=== PATIENT | male | born 1965 | race Caucasian/White ===

== ENCOUNTER → 2024-01-04 10:02 | Outpatient (CLI) | payer OTHER, SELFPAY ==
[2024-01-04 21:13] LABS: Blood Urea Nitrogen 11 mg/dL (9-20); Calcium 9.4 mg/dL (8.4-10.2); Carbon Dioxide 24 mmol/L (22-32); Chloride 104 mmol/L (98-107); Cholesterol 271 mg/dL (140-199); Estimated Glomerular Filt Rate > 60 mL/min (>60); Glucose 94 mg/dL (70-100); HDL Cholesterol 35 mg/dL (40-60); HEMOLYSIS 16 (0-50); LDL Cholesterol Calculated 185 mg/dL (<100); Potassium 4.2 mmol/L (3.4-5.1); Sodium 137 mmol/L (137-145); Triglycerides 257 mg/dL (35-150)
[2024-01-04 21:44] LABS: Prostate Specific Antigen Scrn 0.828 ng/mL (0.1-4.0)
== END ==
PROVIDERS: PCP Family Medicine; Visit Provider Family Medicine
DX: Z12.5 Encounter for screening for malignant neoplasm of prostate (principal); Z13.1 Encounter for screening for diabetes mellitus; Z13.6 Encounter for screening for cardiovascular disorders
CPT/HCPCS: 80048; 80061; G0103